=== PATIENT | female | born 1990 | race African-American/Black ===

== ENCOUNTER 2016-11-09 15:40 | Emergency (ER) | payer OTHER ==
[~2016-11-09] VITALS: Ht 170.2 cm; Wt 74.4 kg
[2016-11-09] MEDS ORDERED: NORCO 5-325 TA1 EAC1 ORAL (16:04)
[2016-11-09 16:13] VITALS: BP 114/79
--- NOTE | 2016-11-09 16:26 | Emergency Room Report ---
History of Present Illness General Chief Complaint: Wound Recheck/Suture Removal Present Illness HPI 26-year-old female presents to the emergency department complaining of recent humerus fracture x2 weeks. Patient states that she was placed into a splint however she is requesting full cast. Patient states she has not followed up with solutions specialist as she is still waiting for her referral appointment from her PCP. Patient states she has intermittent 6/10 throbbing pain. Patient reports that she has been removing her splint herself because it is uncomfortable. Patient states she'll remove it several times a day. She denies new trauma or fall. Patient denies skin color changes in the affected arm. Denies erythema, swelling, or bruising. Denies numbness tingling or loss of sensation or gross motor movements of the extremities, incontinence of bowel or bladder. Denies CP, Palpitations, LOC, AMS, dizziness, Changes in Vision, Sensation, paresthesias, or a sudden severe headache. Patient History Past Medical History: see triage record Past Surgical History: none Pertinent Family History: none Last Menstrual Period: Two weeks ago Now: No Immunizations: UTD Reviewed Nursing Documentation: PMH: Agreed, PSxH: Agreed Nursing Documentation-PMH Past Medical History: No Stated History Review of Systems All Other Systems: negative except mentioned in HPI Physical Exam Vital Signs Date Time Temp Pulse Resp B/P Pulse Ox O2 Delivery O2 Flow Rate FiO2 11/09/16 15:57 97.9 94 16 110/76 100 Room Air Sp02 EP Interpretation: reviewed, normal General Appearance: no apparent distress, alert, GCS 15, non-toxic Head: normocephalic, atraumatic Eyes: bilateral eye PERRL, bilateral eye normal inspection ENT: hearing grossly normal, normal pharynx, no angioedema, normal voice Neck: full range of motion Respiratory: lungs clear, normal breath sounds, speaking full sentences Cardiovascular #1: regular rate, rhythm, no edema, normal capillary refill Cardiovascular #2: 2+ radial (L) Musculoskeletal: back normal, gait/station normal, normal range of motion, tender - TTp to the lateral and posterior left upper arm, no forearm ttp, good survey research analyst strength, normal cap. refill. Neurologic: alert, oriented x3, responsive, motor strength/tone normal, sensory intact, speech normal Psychiatric: judgement/insight normal, memory normal, mood/affect normal Skin: normal color, no rash, warm/dry, well hydrated Medical Decision Making PA Attestation Dr. tinajero is my supervising Physician whom patient management has been discussed with. Diagnostic Impression: Primary Impression: Humerus fracture Qualified Codes: S42.202G - Unspecified fracture of upper end of left humerus , subsequent encounter for fracture with delayed healing ER Course 26-year-old female presents to the emergency department complaining of recent humerus fracture x2 weeks. Patient states that she was placed into a splint however she is requesting full cast. Patient states she has not followed up with solutions specialist as she is still waiting for her referral appointment from her PCP. Patient states she has intermittent 6/10 throbbing pain. Patient reports that she has been removing her splint herself because it is uncomfortable. Patient states she'll remove it several times a day. She denies new trauma or fall. Patient denies skin color changes in the affected arm. Denies erythema, swelling, or bruising. Denies numbness tingling or loss of sensation or gross motor movements of the extremities, incontinence of bowel or bladder. Denies CP, Palpitations, LOC, AMS, dizziness, Changes in Vision, Sensation, paresthesias, or a sudden severe headache. Ddx considered but are not limited to Fracture, dislocation, contusion, Sprain/ Strain/Spasm. Vital signs: are WNL, pt. is afebrile H&PE are most consistent with previously diagnosed left humerus fracture with non-compliance with splint. ORDERS: none required at this time. no evidence of circulatory compromise, no new injury /trauma. ED INTERVENTIONS: - New Posterior long arm Splint applied by pet care technician. Pt. remains neurovascularly intact. -Pt. placed into previous left arm sling that was given to her from [facility]. PT EDUCATION: d/w pt. that solutions specialist will place cast if necessary. d /w pt. that she is not to remove the splint in the mean time as this can delay/ impede healing. DISCHARGE: At this time pt. is stable for d/c to home. Will provide printed patient care instructions, and any necessary prescriptions. Care plan and follow up instructions have been discussed with the patient prior to discharge. Last Vital Signs Date Time Temp Pulse Resp B/P Pulse Ox O2 Delivery O2 Flow Rate FiO2 11/09/16 16:13 97.8 91 15 114/79 100 Room Air Disposition: HOME, SELF-CARE Condition: Stable Scripts Ibuprofen* (MOTRIN*) 600 Mg Tablet 600 MG ORAL THREE TIMES A DAY, #30 TAB 0 Refills Prov: Ev Roe 11/09/16 Patient Instructions: Humerus Fracture Treated With Immobilization, Easy-to- Read Additional Instructions: Take medications as directed. Follow up with a Director Data Management in 3-5 days, even if your symptoms have resolved. Return sooner to ED if new symptoms occur, or current symptoms become worse. - Please note that this Emergency Department Report was dictated using Riffynconstruction and maintenance inspector technology software, occasionally this can lead to erroneous entry secondary to interpretation by the dictation equipment. Ev Roe Nov 09, 2016 16:26
[2016-11-09] MEDS ORDERED: IBUPROFEN600 MG ORAL (16:30)
[2016-11-09 16:40] VITALS: BP 114/79
== END 2016-11-09 16:41 | disposition home or self-care (01) ==
LOC: EMR 16:20
DX: S42.202G Unspecified fracture of upper end of left humerus, subsequent encounter for fracture with delayed healing (principal); X58.XXXD Exposure to other specified factors, subsequent encounter
CPT/HCPCS: 29105; 99283

== ENCOUNTER 2017-09-27 17:37 | Emergency (ER) | payer OTHER ==
[~2017-09-27] VITALS: Ht 167.6 cm; Wt 74.4 kg
[~2017-09-27 17:37] MED LIST: IBUPROFEN600 MG ORAL; NORCO 5-325 TA1 EAC1 ORAL
[2017-09-27] MEDS ORDERED: NKM (17:43)
--- NOTE | 2017-09-27 17:45 | Emergency Room Report ---
History of Present Illness General Chief Complaint: Chest Pain Source: Patient, Medical Record Present Illness HPI 26 YO female presents to the ED c/O 6-10/20 in severity anterior CP x 2 days. Symptoms are noted to be constant, and worsen with leaning forward or lying down flat. Denies recent travel, fevers, chills, recent URI, nausea or vomiting. pt. denies recent immobilization or surgeries. pt. denies abdominal pain or tenderness. reports pain exacerbated with deep breaths. Pt. has hx. of Raynaud's and Lupus. Denies , denies taking control. 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 Pt. reports no improvement of her symptoms with interventions taken at home. Pt. denies joint pain or pain elsewhere. Denies wheezing or sputum production. Allergies: Coded Allergies: CEPHALEXIN (Verified Allergy, Unknown, 09/27/17) Patient History Past Medical History: see triage record, other - raynauds, Lupus Past Surgical History: none Pertinent Family History: none Last Menstrual Period: 09/09/17 Immunizations: UTD Reviewed Nursing Documentation: PMH: Agreed; PSxH: Agreed Nursing Documentation-PMH Past Medical History: No History, Except For Review of Systems All Other Systems: negative except mentioned in HPI Physical Exam Vital Signs Date Time Temp Pulse Resp B/P (MAP) Pulse Ox O2 Delivery O2 Flow Rate FiO2 09/27/17 17:39 98.1 106 18 106/68 98 Room Air 98.1 Sp02 EP Interpretation: reviewed, normal General Appearance: no apparent distress, alert, GCS 15, non-toxic Head: normocephalic, atraumatic Eyes: bilateral eye normal inspection, bilateral eye PERRL ENT: hearing grossly normal, normal voice Neck: full range of motion Respiratory: chest non-tender, lungs clear, normal breath sounds, no rhonchi, no respiratory distress, no accessory muscle use, no wheezing, speaking full sentences Cardiovascular #1: no edema, no gallop, no murmur, no rub, normal capillary refill, tachycardia - mild tachycardia 104-106 Gastrointestinal: non tender, soft Musculoskeletal: back normal, gait/station normal, normal range of motion, non- tender, other - pain is not reproducible Neurologic: alert, oriented x3, responsive, motor strength/tone normal, sensory intact, normal gait, speech normal, grossly normal Psychiatric: judgement/insight normal Skin: normal color, no rash, warm/dry, well hydrated Lymphatic: no adenopathy Medical Decision Making PA Attestation Dr. Quintero is my supervising Physician whom patient management has been discussed with. Diagnostic Impression: Primary Impression: Nonspecific chest pain Additional Impressions: Elevated C-reactive protein (CRP) Elevated erythrocyte sedimentation rate History of lupus Hx of Raynaud's syndrome ER Course 26 YO female presents to the ED c/O 6-10/20 in severity anterior CP x 2 days. Symptoms are noted to be constant, and worsen with leaning forward or lying down flat. Denies recent travel, fevers, chills, recent URI, nausea or vomiting. pt. denies recent immobilization or surgeries. pt. denies abdominal pain or tenderness. reports pain exacerbated with deep breaths. Pt. has hx. of Raynaud's and Lupus. Denies , denies taking control. 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 Pt. reports no improvement of her symptoms with interventions taken at home. Pt. denies joint pain or pain elsewhere. Denies wheezing or sputum production. Ddx considered but are not limited to LA, pneumonia, contusion, costochondritis , Pericarditis, Pleural effusion, pleurisy PE, ACS, Shoulder strain, Chest wall contusion. aortic dissection. Vital signs: are WNL, pt. is afebrile H&PE are most consistent with nonspecific cp with no significant cardiac or PE RF's, hx of rheumatological disease. ORDERS: - EK NSR no acute changes -CBC: pancytopenia -CMP: unremarkable -ESR: 115 -CRP: 5.7 -D-Dimer: negative CXR: Unremarkable ED INTERVENTIONS: - PT. placed on cardiac monitoring. -Toradol 15mg IV -[place] PO -Prednisone PO -Re-evaluation x 2 , upon second assessment pt. reports symptoms have improved. Discussed with this patient that her laboratory work was for the most part unremarkable other than elevation and inflammatory markers CRP and ESR. Discussed with patient that this is most consistent with inflammatory response possibly rheumatological in etiology. Gave patient strict ED return precautions , discussed treatment plan with anti-inflammatories and steroid burst. Also discussed close outpatient follow-up with her detective bureau chief/PCP DISCHARGE: At this time pt. is stable for d/c to home. Will provide printed patient care instructions, and any necessary prescriptions. Care plan and follow up instructions have been discussed with the patient prior to discharge. Labs Test 09/27/17 18:04 09/27/17 18:07 Urine HCG, Qualitative Negative (NEGATIVE) White Blood Count 4.4 K/UL (4.8-10.8) Red Blood Count 3.58 M/UL (4.20-5.40) Hemoglobin 10.2 G/DL (12.0-16.0) Hematocrit 31.8 % (37.0-47.0) Mean Corpuscular Volume 89 FL (80-99) Mean Corpuscular Hemoglobin 28.5 PG (27.0-31.0) Mean Corpuscular Hemoglobin Concent 32.1 G/DL (32.0-36.0) Red Cell Distribution Width 13.4 % (11.6-14.8) Platelet Count 131 K/UL (150-450) Mean Platelet Volume 9.1 FL (6.5-10.1) Neutrophils (%) (Auto) 57.9 % (45.0-75.0) Lymphocytes (%) (Auto) 23.3 % (20.0-45.0) Monocytes (%) (Auto) 17.7 % (1.0-10.0) Eosinophils (%) (Auto) 0.6 % (0.0-3.0) Basophils (%) (Auto) 0.5 % (0.0-2.0) Erythrocyte Sedimentation Rate 114 MM/HR (0-20) D-Dimer 0.32 mg/L FEU (0.00-0.49) Sodium Level 139 MMOL/L (136-145) Potassium Level 3.6 MMOL/L (3.5-5.1) Chloride Level 103 MMOL/L (98-107) Carbon Dioxide Level 28 MMOL/L (21-32) Anion Gap 8 mmol/L (5-15) Blood Urea Nitrogen 8 mg/dL (7-18) Creatinine 0.8 MG/DL (0.55-1.30) Estimat Glomerular Filtration Rate > 60 mL/min (>60) Glucose Level 78 MG/DL (74-106) Calcium Level 8.7 MG/DL (8.5-10.1) Total Bilirubin 0.2 MG/DL (0.2-1.0) Aspartate Amino Transf (AST/SGOT) 18 U/L (15-37) Alanine Aminotransferase (ALT/SGPT) 18 U/L (12-78) Alkaline Phosphatase 57 U/L (46-116) C-Reactive Protein, Quantitative 5.1 mg/dL (0.00-0.90) Total Protein 8.5 G/DL (6.4-8.2) Albumin 3.4 G/DL (3.4-5.0) Globulin 5.1 g/dL Albumin/Globulin Ratio 0.7 (1.0-2.7) Lipase 181 U/L (73-393) EKG Diagnostic Results Rate: normal - 96 Rhythm: NSR ST Segments: no acute changes ASA given to the pt in ED: No Chest X-Ray Diagnostic Results Chest X-Ray Diagnostic Results : Chest X-Ray Ordered: Yes # of Views/Limited/Complete: 1 View Indication: Chest Pain EP Interpretation: Yes PA Xray: by supervising MD, and agrees with findings. Interpretation: no consolidation, no effusion, no pneumothorax, no acute cardiopulmonary disease Impression: No acute disease Electronically Signed by: Ev Roe PA-C Last Vital Signs Date Time Temp Pulse Resp B/P (MAP) Pulse Ox O2 Delivery O2 Flow Rate FiO2 09/27/17 17:39 98.1 106 18 106/68 98 Room Air 98.1 Status: improved Disposition: HOME, SELF-CARE Condition: Stable Scripts Ibuprofen* (MOTRIN*) 600 Mg Tablet 600 MG ORAL THREE TIMES A DAY, #20 TAB 0 Refills Prov: Ev Roe 09/27/17 Prednisone* (PREDNISONE*) 20 Mg Tablet 40 MG ORAL DAILY for 5 Days, #10 TAB Prov: Ev Roe 09/27/17 Patient Instructions: Nonspecific Chest Pain Additional Instructions: Take medications as directed. Follow up with a Primary Care Provider, preferably your HAUL DRIVER within 3 days, even if your symptoms have resolved. - your EKG was normal, d-dimer was negative/normal, and chest x-ray was also normal. all labs were normal except for elevated CRP and ESR. Return immediately/sooner to the Emergency Dept. if new symptoms occur, or current symptoms become worse. - Please note that this Emergency Department Report was dictated using tapvivafuneral pre arrangement counselor technology software, occasionally this can lead to erroneous entry secondary to interpretation by the dictation equipment. Ev Roe Sep 27, 2017 17:45
[2017-09-27] MEDS ORDERED: Ketorolac 30mg Inj IV ONE (18:00)
[2017-09-27 18:03] VITALS: BP 107/77
[2017-09-27 18:38] LABS: BASOPHILS % (AUTO) 0.5 % (0.0-2.0); EOSINOPHILS % (AUTO) 0.6 % (0.0-3.0); HEMATOCRIT 31.8 % (37.0-47.0); HEMOGLOBIN 10.2 G/DL (12.0-16.0); LYMPHOCYTES % (AUTO) 23.3 % (20.0-45.0); MEAN CORPUSCULAR VOLUME 89 FL (80-99); MONOCYTES % (AUTO) 17.7 % (1.0-10.0); NEUTROPHILS % (AUTO) 57.9 % (45.0-75.0); PLATELET COUNT 131 K/UL (150-450); RED BLOOD COUNT 3.58 M/UL (4.20-5.40); RED CELL DISTRIBUTION WIDTH 13.4 % (11.6-14.8); WHITE BLOOD COUNT 4.4 K/UL (4.8-10.8)
[2017-09-27 18:44] LABS: ANION GAP 8 mmol/L (5-15); BLOOD UREA NITROGEN 8 mg/dL (7-18); CALCIUM 8.7 MG/DL (8.5-10.1); CARBON DIOXIDE 28 MMOL/L (21-32); CHLORIDE 103 MMOL/L (98-107); CREATININE 0.8 MG/DL (0.55-1.30); POTASSIUM 3.6 MMOL/L (3.5-5.1); SODIUM 139 MMOL/L (136-145)
[2017-09-27 18:48] LABS: ALANINE AMINOTRANSFERASE 18 U/L (12-78); ALBUMIN 3.4 G/DL (3.4-5.0); ALBUMIN/GLOBULIN RATIO 0.7 (1.0-2.7); ALKALINE PHOSPHATASE 57 U/L (46-116); ASPARTATE AMINO TRANSFERASE 18 U/L (15-37); BILIRUBIN,TOTAL 0.2 MG/DL (0.2-1.0)
[2017-09-27 19:00] VITALS: BP 110/74
[2017-09-27] MEDS ORDERED: Norco 5mg/325mg tab ORAL ONE (19:30)
[2017-09-27] MEDS ORDERED: PREDNISONE20 MG ORAL (20:48)
[2017-09-27] MEDS ORDERED: IBUPROFEN600 MG ORAL (20:48)
[2017-09-27 21:06] VITALS: BP 108/68
[2017-09-27 21:10] VITALS: BP 108/68
--- NOTE | 2017-09-28 12:29 | Cardiology Report ---
APPROVED REPORT EKG Measurement Heart [id number] Normal sinus rhythm Normal ECG
--- NOTE | 2017-09-28 18:02 | Diagnostic Imaging Report ---
Indication: Pain Technique: XRAY Chest 1v Comparison: None Findings: Heart size and mediastinal contours are within normal limits given technique. Possible subtle increased lung markings. There is no focal consolidation, pneumothorax or pleural effusion. Osseous structures demonstrate no acute abnormality. Impression: Possible subtle increased lung markings, nonspecific finding. Consider reactive or small airway disease. No focal airspace consolidation, pleural effusion or pneumothorax.
== END 2017-09-27 21:10 | disposition home or self-care (01) ==
LOC: EMR 18:11
DX: R07.9 Chest pain, unspecified (principal); R79.82 Elevated C-reactive protein (CRP); R70.0 Elevated erythrocyte sedimentation rate; M32.9 Systemic lupus erythematosus, unspecified; I73.00 Raynaud's syndrome without gangrene; Z88.1 Allergy status to other antibiotic agents
CPT/HCPCS: 36415; 71045; 80053; 81025; 83690; 85025; 85379; 85651; 86140; 93005; 96374; 99284; J1885; J7512

== ENCOUNTER 2018-03-20 14:58 | Emergency (ER) | payer OTHER ==
[~2018-03-20] VITALS: Ht 170.2 cm; Wt 74.4 kg
[~2018-03-20 14:58] MED LIST changes: +NKM; +PREDNISONE20 MG ORAL; +TRAMADOL HCL50 MG ORAL
[2018-03-20] MEDS ORDERED: NKM (15:36)
--- NOTE | 2018-03-20 15:52 | Emergency Room Report ---
History of Present Illness General Chief Complaint: Upper Respiratory Illness Source: Patient Present Illness HPI 27-year-old -[place] female with history of lupus controlled with prednisone here complaining of 4 days of sore throat, congestion, cough with yellow phlegm. Denies fever or chills, denies SOB, chest pain, palpitation, recent exposure or sick contacts, denies dysuria, nausea vomiting, abdominal pain, and all other associated symptoms. Has not taken any medication for her symptoms Allergies: Coded Allergies: CEPHALEXIN (Verified Allergy, Unknown, 09/27/17) Patient History Past Medical History: see triage record Past Surgical History: none Pertinent Family History: none Now: No Immunizations: UTD Reviewed Nursing Documentation: PMH: Agreed; PSxH: Agreed Nursing Documentation-PMH Past Medical History: No History, Except For Review of Systems All Other Systems: negative except mentioned in HPI Physical Exam Vital Signs Date Time Temp Pulse Resp B/P (MAP) Pulse Ox O2 Delivery O2 Flow Rate FiO2 03/20/18 15:31 98.4 121 18 109/73 98 Room Air Sp02 EP Interpretation: reviewed, normal General Appearance: normal inspection, well appearing, no apparent distress, alert Head: normocephalic, atraumatic Eyes: bilateral eye normal inspection, bilateral eye PERRL ENT: no angioedema, normal voice, TMs + canals normal, pharyngeal erythema, other - frontal sinus tenderness to palpation Neck: normal inspection, full range of motion, supple Respiratory: normal inspection, chest non-tender, no rhonchi, no wheezing Cardiovascular #1: normal inspection, regular rate, rhythm, no edema, no gallop , no murmur Gastrointestinal: normal inspection, soft Rectal: deferred Genitourinary: deferred Musculoskeletal: normal inspection, back normal, digits/nails normal, gait/ station normal Neurologic: normal inspection, alert, oriented x3, responsive Psychiatric: normal inspection, judgement/insight normal, memory normal Skin: normal inspection, normal color, no rash, warm/dry, well hydrated Lymphatic: normal inspection, no adenopathy Medical Decision Making PA Attestation All diagnosis and treatment plans are reviewed and discussed with my supervising physician Dr. Stephenson Diagnostic Impression: Primary Impression: Sinusitis ER Course 27-year-old -[place] female with history of lupus controlled with prednisone here complaining of 4 days of sore throat, congestion, cough with yellow phlegm. Denies fever or chills, denies SOB, chest pain, palpitation, recent exposure or sick contacts, denies dysuria, nausea vomiting, abdominal pain, and all other associated symptoms. Has not taken any medication for her symptoms Ddx considered but are not limited to sinusitis, URI, bronchitis Vital signs: are WNL, pt. is afebrile H&PE are most consistent with and sinusitis issue is immunocompromised bacterial sinusitis suspected ORDERS: azithromycin, Flonase ED INTERVENTIONS: None required at this time. DISCHARGE: At this time pt. is stable for d/c to home. Will provide printed patient care instructions, and any necessary prescriptions. Care plan and follow up instructions have been discussed with the patient prior to discharge. Last Vital Signs Date Time Temp Pulse Resp B/P (MAP) Pulse Ox O2 Delivery O2 Flow Rate FiO2 03/20/18 15:31 98.4 121 18 109/73 98 Room Air Disposition: HOME, SELF-CARE Condition: Stable Scripts Fluticasone Propionate (Flonase Allergy Relief) 9.9 Ml [place].susp 2 PUFFS NS BID, #1 SPRAY Prov: Jose Carlos Tang 03/20/18 Azithromycin* (ZITHROMAX*) 250 Mg Tablet 250 MG ORAL DAILY, #6 TAB 0 Refills Take two tables once daily for 1 day, then one tablet once daily for 4 days. Prov: Jose Carlos Tang 03/20/18 Patient Instructions: Sinusitis, Adult, [id number] Jose Carlos Tang Mar 20, 2018 15:52
[2018-03-20] MEDS ORDERED: FLONASE ALLERG9.9 ML NS (15:53)
[2018-03-20] MEDS ORDERED: ZITHROMAX250 MG ORAL (15:53)
[2018-03-20 15:58] VITALS: BP 108/74
[2018-03-20 15:59] VITALS: BP 108/74
== END 2018-03-20 16:20 | disposition home or self-care (01) ==
LOC: EMR 15:10
DX: J32.9 Chronic sinusitis, unspecified (principal); Z88.8 Allergy status to other drugs, medicaments and biological substances
CPT/HCPCS: 99283

== ENCOUNTER 2018-05-09 14:40 | Emergency (ER) | payer OTHER ==
[~2018-05-09] VITALS: Ht 170.2 cm; Wt 74.4 kg
[~2018-05-09 14:40] MED LIST changes: +FLONASE ALLERG9.9 ML NS; +ZITHROMAX250 MG ORAL
[2018-05-09 14:45] VITALS: BP 126/72
--- NOTE | 2018-05-09 14:45 | NUR ---
ED Nurse Note: PT WALKED IN TO ER TODAY FROM HOME. AOX4. PT C/O PAINFUL COUGH AND NASAL CONGESTION X 3 DAYS. PT DENIES ANY PAIN AT REST. PT DENIES FEVER. LUNG SOUNDS CLEAR IN ALL LOBES. NO SIGNS OF RESPIRATORY DISTRESS OR RETRACTIONS NOTED.
--- NOTE | 2018-05-09 14:56 | Emergency Room Report ---
History of Present Illness General Chief Complaint: Upper Respiratory Illness Source: Patient Present Illness HPI 27-year-old female with no significant past medical history here complaining of 3 days of sore throat, body ache, cough with yellow phlegm. She should further complains of rhinorrhea and congestion however denies fever and chills. planes of intermittent wheezing especially at night exacerbated by coughing. Denies SOB, chest pain, palpitation, nausea vomiting, abdominal pain, recent travel. Has been taking [id number]-[id number] cough medications with minimal relief. Allergies: Coded Allergies: CEPHALEXIN (Verified Allergy, Unknown, 09/27/17) Patient History Past Medical History: see triage record Past Surgical History: unable to obtain Pertinent Family History: none Last Menstrual Period: last month Now: No Immunizations: UTD Reviewed Nursing Documentation: PMH: Agreed; PSxH: Agreed Nursing Documentation-PMH Past Medical History: No History, Except For Review of Systems All Other Systems: negative except mentioned in HPI Physical Exam Vital Signs Date Time Temp Pulse Resp B/P (MAP) Pulse Ox O2 Delivery O2 Flow Rate FiO2 05/09/18 14:44 98.8 116 22 122/69 98 Room Air Sp02 EP Interpretation: reviewed, normal General Appearance: normal inspection, well appearing Head: normocephalic, atraumatic Eyes: bilateral eye normal inspection, bilateral eye PERRL ENT: no angioedema, normal voice, TMs + canals normal, nasal congestion, pharyngeal erythema Neck: normal inspection, full range of motion, supple Respiratory: normal inspection, lungs clear, no rhonchi, no retraction, no wheezing Cardiovascular #1: normal inspection, no edema, no gallop, no murmur Gastrointestinal: normal inspection, normal bowel sounds, soft Rectal: deferred Genitourinary: deferred Musculoskeletal: normal inspection, back normal Neurologic: normal inspection, alert Psychiatric: normal inspection, judgement/insight normal Skin: normal inspection, normal color, no rash, warm/dry, palpation normal Lymphatic: normal inspection, no adenopathy Medical Decision Making PA Attestation all diagnosis and treatment plans are reviewed and discussed with my supervising physician Dr. Cleveland Diagnostic Impression: Primary Impression: Upper respiratory infection ER Course 27-year-old female with no significant past medical history here complaining of 3 days of sore throat, body ache, cough with yellow phlegm. She should further complains of rhinorrhea and congestion however denies fever and chills. planes of intermittent wheezing especially at night exacerbated by coughing. Denies SOB, chest pain, palpitation, nausea vomiting, abdominal pain, recent travel. Has been taking rdvi-yoi-apvzgae cough medications with minimal relief. Ddx considered but are not limited to influenza, strep pharyngitis, viral upper respiratory infection, bronchitis Vital signs: are WNL, pt. is afebrile H&PE are most consistent with and viral upper respiratory infection ORDERS: Phenergan, Flonase, Ventolin HFA ED INTERVENTIONS: None required at this time. DISCHARGE: At this time pt. is stable for d/c to home. Will provide printed patient care instructions, and any necessary prescriptions. Care plan and follow up instructions have been discussed with the patient prior to discharge. Last Vital Signs Date Time Temp Pulse Resp B/P (MAP) Pulse Ox O2 Delivery O2 Flow Rate FiO2 05/09/18 14:44 98.8 116 22 122/69 98 Room Air Disposition: HOME, SELF-CARE Condition: Stable Scripts Albuterol Sulfate (VENTOLIN HFA) 18 Gm Hfa.aer.ad 2 PUFFS INH EVERY 6 HOURS, #18 GM 0 Refills Prov: Jose Carlos Tang 05/09/18 Fluticasone Propionate (Flonase Allergy Relief) 9.9 Ml [place].susp 2 PUFFS NS BID, #1 SPRAY Prov: Jose Carlos Tang 05/09/18 Promethazine Hcl (PROMETHAZINE HCL*) 6.25 Mg/5 Ml Syrup 5 ML ORAL Q6H, #120 ML 0 Refills Prov: Jose Carlos Tang 05/09/18 Patient Instructions: Upper Respiratory Infection, Adult Jose Carlos Tang May 09, 2018 14:56
[2018-05-09] MEDS ORDERED: FLONASE ALLERG9.9 ML NS (14:58)
[2018-05-09] MEDS ORDERED: PROMETHAZI6.25 MG/1 ORAL (14:58)
[2018-05-09] MEDS ORDERED: VENTOLIN HFA18 GM INH (14:58)
[2018-05-09 15:04] VITALS: BP 120/74
--- NOTE | 2018-05-09 15:05 | NUR ---
ED Nurse Note: PT SITTING PEACEFULLY IN BED IN NAD. AOX4. PRESCRIPTIONS AND DISCHARGE PAPERWORK EXPLAINED TO PT. PT VERBALIZES UNADERSTANDING AND ALL QUESTIONS ANSWERED. PRESCRIPTIONS AND DISCHARGE PAPERWORK GIVEN TO PT AND ID WRISTBAND REMOVED. PT WALKED OUT OF ER WITH STEADY GAIT AND ALL BELONGINGS.
== END 2018-05-09 16:24 | disposition home or self-care (01) ==
LOC: EMR 15:00
DX: J06.9 Acute upper respiratory infection, unspecified (principal); Z88.8 Allergy status to other drugs, medicaments and biological substances
CPT/HCPCS: 99283

== ENCOUNTER 2018-06-12 11:49 | Emergency (ER) | payer OTHER ==
[~2018-06-12] VITALS: Ht 170.2 cm; Wt 74.4 kg
[~2018-06-12 11:49] MED LIST changes: +PROMETHAZI6.25 MG/1 ORAL; +VENTOLIN HFA18 GM INH
[2018-06-12 11:53] VITALS: BP 119/74
--- NOTE | 2018-06-12 12:00 | NUR ---
ED Nurse Note: PT. AAOX4. AMBULATORY. C/O OF NUMBNESS OF FINGERS. 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 HX OF RAYNAUD'S. GAVE WARM COMPRESS TO THE PT.
--- NOTE | 2018-06-12 12:13 | Emergency Room Report ---
History of Present Illness General Chief Complaint: General Complaint Source: Patient Present Illness HPI Patient works as a physical security specialist She reports that she has a history of raynaude syndrome Reports that she was at work outside when her fingers started feeling tingly with neuropathy and started changing color Pain also 4 out of 10 Denies any chest pain or short of breath denies any vomiting Looking at the triage note patient had reported congestion and upper respiratory pathology as well however does not discuss that with any Allergies: Coded Allergies: CEPHALEXIN (Verified Allergy, Unknown, 09/27/17) Patient History Past Medical History: see triage record Pertinent Family History: none Now: No Reviewed Nursing Documentation: PMH: Agreed; PSxH: Agreed Nursing Documentation-PMH Past Medical History: No History, Except For Review of Systems All Other Systems: negative except mentioned in HPI Physical Exam Vital Signs Date Time Temp Pulse Resp B/P (MAP) Pulse Ox O2 Delivery O2 Flow Rate FiO2 06/12/18 11:53 98.2 90 19 119/74 98 Room Air Sp02 EP Interpretation: reviewed, normal General Appearance: well appearing, no apparent distress Head: normocephalic, atraumatic Eyes: bilateral eye PERRL, bilateral eye EOMI ENT: hearing grossly normal, normal pharynx, TMs + canals normal, uvula midline Neck: full range of motion, supple, no meningismus, no bony tend Respiratory: lungs clear, normal breath sounds, no rhonchi, no respiratory distress, no retraction, no accessory muscle use Cardiovascular #1: normal peripheral pulses, regular rate, rhythm, no edema, no gallop, no JVD, no murmur Gastrointestinal: normal bowel sounds, non tender, soft, no mass, no organomegaly, non-distended, no guarding, no hernia, no pulsatile mass, no rebound Genitourinary: no CVA tenderness Musculoskeletal: normal inspection Neurologic: oriented x3, responsive, marklogic developer III-XII nml as tested, motor strength/ tone normal, sensory intact Psychiatric: mood/affect normal Skin: normal color, no rash, warm/dry, palpation normal Lymphatic: normal inspection, no adenopathy Medical Decision Making Diagnostic Impression: Primary Impression: Raynaud phenomenon Additional Impression: Raynauds syndrome ER Course Given the patient's history and exam at this time appears significantly improved patient was holding a glove filled with warm water and reports that her fingers are essentially back to normal now Denies any other ongoing neuropathy And patient stable for close outpatient follow-up we discussed wearing gloves and possible heat packs as needed Last Vital Signs Date Time Temp Pulse Resp B/P (MAP) Pulse Ox O2 Delivery O2 Flow Rate FiO2 06/12/18 11:53 98.2 90 19 119/74 98 Room Air Status: improved Disposition: HOME, SELF-CARE Condition: Improved Additional Instructions: Patient is provided with the discharge instructions notified to follow up with primary doctor in the next 2-3 days otherwise return to the er with any worsening symptoms. Please note that this report is being documented using [employer] technology. This can lead to erroneous entry secondary to incorrect interpretation by the dictating instrument. Lisa Hanson DO Jun 12, 2018 12:13
[2018-06-12 12:21] VITALS: BP 119/74
--- NOTE | 2018-06-12 12:22 | NUR ---
Ed Nurse Note: pt is cleared to be DC per ER provider, pt discharge and aftercare instruction provided, pt education done via discussion and handout, pt advised to follow up with pcp or return to ED if sx worsen or new sx develop, pt verbalized understanding and agrees with plan, pt vss, ambulatory w/ steady gait, all belongiongs left w/ pt, wristband removed.
== END 2018-06-12 12:30 | disposition home or self-care (01) ==
LOC: EMR 12:00
DX: I73.00 Raynaud's syndrome without gangrene (principal); Z88.1 Allergy status to other antibiotic agents
CPT/HCPCS: 99282

== ENCOUNTER 2018-09-20 10:45 | Emergency (ER) | payer OTHER ==
[~2018-09-20] VITALS: Ht 170.2 cm; Wt 74.4 kg
--- NOTE | 2018-09-20 11:04 | NUR ---
ED Nurse Note: Pt has been having medial back pain x " a couple of months", no recent injury. AOx4, VSS peter. Will cont to monitor.
--- NOTE | 2018-09-20 11:21 | NUR ---
ED Nurse Note: Blood and urine collected and sent to lab.
[2018-09-20 11:24] LABS: HEMATOCRIT 37.3 % (37.0-47.0); HEMOGLOBIN 11.7 G/DL (12.0-16.0); MEAN CORPUSCULAR VOLUME 89 FL (80-99); PLATELET COUNT 175 K/UL (150-450); RED BLOOD COUNT 4.17 M/UL (4.20-5.40); RED CELL DISTRIBUTION WIDTH 12.9 % (11.6-14.8)
--- NOTE | 2018-09-20 12:02 | Diagnostic Imaging Report ---
Indication: Neck Pain Findings: 3 views of the cervical spine were obtained. There is no acute fracture identified. Alignment is normal. The open-mouth odontoid view shows an intact dens and good alignment of the lateral masses with respect to the body of C2. There is no soft tissue swelling. Impression: Negative cervical spine examination.
--- NOTE | 2018-09-20 12:03 | Diagnostic Imaging Report ---
Indication: Dyspnea Comparison: None 2 views of the chest obtained. Findings: Cardiomediastinal silhouette and pulmonary vascularity are within normal limits for age. The diaphragmatic contour is smooth and costophrenic angles are sharp. No pleural effusions are identified. The bones are unremarkable. Impression: No acute disease Note: The interstitium appears prominent on this exam but this is felt to be technical issue.
[2018-09-20 12:23] VITALS: BP 118/76
--- NOTE | 2018-09-20 12:30 | Diagnostic Imaging Report ---
Indication: Back pain Comparison: None Findings: 3 views of the lumbar spine were obtained. No acute fracture or malalignment is identified. Vertebral body heights and disk spaces are well maintained. Posterior elements are unremarkable. There are extensive linear calcifications within the subcutaneous tissues posterior to the lumbar spine and sacrum. The nature of this is not known. Impression: No acute findings. Subcutaneous calcification. Etiology not known.
[2018-09-20] MEDS ORDERED: NORCO 5-325 TA1 EACH ORAL (12:48)
[2018-09-20] MEDS ORDERED: IBUPROFEN600 MG ORAL (12:48)
[2018-09-20] MEDS ORDERED: CYCLOBENZAPRINE10 MG ORAL (12:48)
--- NOTE | 2018-09-20 13:12 | Emergency Room Report ---
History of Present Illness General Chief Complaint: Back Pain-No Injury Source: Medical Record Present Illness HPI Patient has history of lupus. Patient states that she has lower back pain and diffuse back pain and spine pain. She denies any numbness tingling difficulty with ambulation. Denies any difficulty with urination or urinary incontinence. States that the pain gets worse seems me throughout the day in addition she is noticed some little bumps of lymphadenopathy in her lower back. She denies any dysuria urinary frequency. Denies any fever chest pain shortness of breath. No other complaints are noted. Symptoms noted to be mild to moderate. No other modifying factors. No other associated signs and symptoms. No other complaints were noted. Allergies: Coded Allergies: CEPHALEXIN (Verified Allergy, Unknown, 09/27/17) Patient History Past Medical History: other - Lupus Past Surgical History: none Pertinent Family History: none Social History: Denies: smoking, alcohol use, drug use Last Menstrual Period: 09/11/18 Reviewed Nursing Documentation: PMH: Agreed; PSxH: Agreed Nursing Documentation-PMH Past Medical History: No History, Except For Review of Systems All Other Systems: negative except mentioned in HPI Physical Exam Vital Signs Date Time Temp Pulse Resp B/P (MAP) Pulse Ox O2 Delivery O2 Flow Rate FiO2 09/20/18 10:48 98.1 105 18 118/76 (90) 98 Room Air Sp02 EP Interpretation: reviewed, normal General Appearance: normal inspection, well appearing, no apparent distress, alert Head: atraumatic Eyes: bilateral eye normal inspection ENT: normal ENT inspection, hearing grossly normal, normal voice Neck: normal inspection, full range of motion, supple, no bony tend Respiratory: normal inspection, lungs clear, normal breath sounds, no respiratory distress, no retraction, no wheezing Cardiovascular #1: regular rate, rhythm, no edema Gastrointestinal: normal inspection, normal bowel sounds, non tender, soft, no guarding, no hernia Genitourinary: no CVA tenderness Musculoskeletal: normal inspection, back normal, normal range of motion, other - Paraspinal tenderness. Lymphadenopathy small lower back Neurologic: normal inspection, alert, responsive, speech normal Psychiatric: normal inspection, judgement/insight normal, mood/affect normal Skin: normal inspection, normal color, no rash Medical Decision Making Diagnostic Impression: Primary Impression: Back pain Additional Impressions: Lymphadenopathy Exacerbation of systemic lupus ER Course Patient presents emergency department today complaining of diffuse lower back pain and upper back pain and lymphadenopathy in the lower back. Differential considerations include fracture dislocation versus strain versus radiculopathy versus lupus exacerbation. Patient's exam is fairly benign however there is palpable lymphadenopathy in the lower back. Given the severity of the patient' s presentation I felt this is a highly complex patient. This patient required e laboratory and radiographic work-up. Laboratory work-up was negative x-rays also normal. Therefore I feel the patient can be monitoring some outpatient. Patient is given prescriptions for e pain medications. Patient is advised to follow up with primary doctor in 2-3 days and return the emergency room for any worsening symptoms and as needed.. Chest X-Ray Diagnostic Results Chest X-Ray Diagnostic Results : Chest X-Ray Ordered: Yes # of Views/Limited/Complete: 2 View Indication: Other - Pain EP Interpretation: No Impression: No acute disease Other X-Ray Diagnostic Results Other X-Ray Diagnostic Results : X-Ray ordered: C-spine and L-spine x-ray negative per radiology Last Vital Signs Date Time Temp Pulse Resp B/P (MAP) Pulse Ox O2 Delivery O2 Flow Rate FiO2 09/20/18 12:23 98.1 68 18 118/76 98 Room Air Status: improved Disposition: HOME, SELF-CARE Condition: Stable Scripts Cyclobenzaprine Hcl* (FLEXERIL*) 10 Mg Tablet 10 MG ORAL THREE TIMES A DAY, #14 TAB Prov: Benjy Garcia MD 09/20/18 Ibuprofen* (MOTRIN*) 600 Mg Tablet 600 MG ORAL Q8H PRN for For Pain, #20 TAB 0 Refills Prov: Benjy Garcia MD 09/20/18 Hydrocodone Bit/Acetaminophen 5-325* (NORCO 5-325*) 1 Each Tablet 1 TAB ORAL Q6H PRN for For Pain, #10 TAB 0 Refills Prov: Benjy Garcia MD 09/20/18 Patient Instructions: Sciatica, Back Pain, Adult Benjy Garcia MD Sep 20, 2018 13:12
== END 2018-09-20 13:00 | disposition home or self-care (01) ==
LOC: EMR 11:20
DX: M54.5 Low back pain (principal); R59.1 Generalized enlarged lymph nodes; M32.9 Systemic lupus erythematosus, unspecified; Z88.8 Allergy status to other drugs, medicaments and biological substances
CPT/HCPCS: 36415; 71046; 72020; 72040; 81025; 85007; 85025; 99284